=== PATIENT | female | born 1955 | race Caucasian/White ===

== ENCOUNTER → 2021-10-16 | Outpatient (CLI) | payer OTHER ==
[~2021-10-16] MED LIST: ADMELOG SO100 UNIT/1 SQ; ADVAIR HFA 230/1 INH INH; ALBUTEROL2.5 MG/3 M INH; ALLOPURINOL100 MG PO; ATORVASTATIN CA20 MG PO; BASAGLAR K100 UNIT/1 SQ; COMBIVENT RESPIM4 GM INH; ELIQUIS2.5 MG PO; ENSURE ACTIVE237 ML PO; FERROUS SULFAT325 MG PO; FOSAMAX70 MG PO; INCRUSE ELLI62.5 MCG INH; LASIX20 MG PO; LEVOFLOXACIN500 MG PO; LIPITOR TAB 2020 MG PO; LIPITOR80 MG PO; LOPRESSOR 25 MG25 MG PO; LOW DOSE ASPIRI81 MG PO; MULTIVITAMIN1 EACH PO; NEURONTIN600 MG PO; NICOTINE PATCH1 EAC2 TD; NITROSTAT 0.40.4 MG SL; NORCO 10-325 T1 EACH PO; TESSALON PERLE100 MG PO; THERAGRAN M TAB1 EA PO; TRADJENTA5 MG PO; TYLENOL 500 MG500 MG PO; TYLENOL 8 HOUR650 MG PO; VENTOLIN HFA 66.7 GM INH; VITAMIN D10000 UNIT PO; WIXELA 250-501 EACH INH; ZANTAC 150 MG150 MG PO; ZOFRAN4 MG PO; ZYLOPRIM 100 M100 MG PO
== END ==
LOC: KOH-I 13:25
DX: S92.351A Displaced fracture of fifth metatarsal bone, right foot, initial encounter for closed fracture (principal); M21.961 Unspecified acquired deformity of right lower leg; M85.88 Other specified disorders of bone density and structure, other site
CPT/HCPCS: 73630